=== PATIENT | male | born 1970 | race Caucasian/White ===

== ENCOUNTER → 2017-07-21 | Outpatient (CLI) | payer OTHER ==
[~2017-07-21] MED LIST: IOPAMIDOL (ISOVUE-370) 150 ML BTL IV ONE; METOPROLOL TARTRATE 5 MG/5 ML INJ ONE
== END ==
LOC: FIMAGING 07:43
PROVIDERS: ATTEND Internal Medicine Cardiovascular Disease
DX: I49.3 Ventricular premature depolarization (principal)
CPT/HCPCS: Q9967

== ENCOUNTER 2017-10-13 07:03 | Observation (INO) | payer OTHER ==
[2017-10-13] MEDS ORDERED: NS 1,000 ML IV ONE (07:04)
--- NOTE | 2017-10-13 07:34 | CPEKG ---
Heart Rate: 81 RR Interval: 741 P-R Interval: 148 QRSD Interval: 104 QT Interval: 436 QTC Interval: 506 P [place]: -16 QRS [place]: 19 T Wave [place]: -19 EKG Severity - ABNORMAL ECG - EKG Impression: SINUS RHYTHM EKG Impression: MULTIPLE VENTRICULAR PREMATURE COMPLEXES Electronically Signed By: Boo Payne 13-Oct-2017 08:43:46
--- NOTE | 2017-10-13 07:44 | PDANEPAE ---
ANE History of Present Illness 47 year old male for PVC ablation. ANE Past Medical History - Cardiovascular History Hx Hypertension: No Hx Arrhythmias: Yes Hx Chest Pain: No Hx Coronary Artery / Peripheral Vascular Disease: No Hx CHF / Valvular Disease: No Hx Palpitations: Yes Cardiovascular History Comment: Frequent PVCs; here for PVC ablation. - Pulmonary History Hx COPD: No Hx Asthma/Reactive Airway Disease: Yes Hx Recent Upper Respiratory Infection: No Hx Oxygen in Use at Home: No Hx Sleep Apnea: No - Neurologic History Hx Cerebrovascular Accident: No Hx Seizures: No Hx Dementia: No - Endocrine History Hx Diabetes: No Endocrine History Comment: History of thyroid nodule surgically removed - benign. Was previously on levothyroxine, but discontinued in 2014 - Renal History Hx Renal Disorders: No - Liver History Hx Hepatic Disorders: No - Neurological & Psychiatric Hx Hx Neurological and Psychiatric Disorders: No - Cancer History Hx Cancer: No - Congenital Disorder History Hx Congenital Disorders: No - GI History GERD: mild - Chronic Pain History Chronic Pain: No - Surgical History Prior Surgeries: Cervical spine artificial disc but has preserved range of motion. ANE Review of Systems Review of systems is: negative Review of Systems: - Exercise capacity Exercise capacity: >=4 METS ANE Patient History - Allergies Allergies/Adverse Reactions: Penicillins Allergy (Unknown, Verified 10/07/17 11:31) Dyspnea/Hives - Home Medications Home medications: home medication list seen and reviewed Home Medications: Aspirin [Aspirin 81mg (*)] 81 mg PO DAILY 10/07/17 [Last Taken Unknown] Multivitamins [Multivitamin (*)] 1 each PO DAILY 10/07/17 [Last Taken Unknown] Verapamil ER [[place] SR/ER 180MG (*)] 180 mg PO DAILY 10/07/17 [Last Taken Unknown] - NPO status NPO Status: no food or drink >8 hours - Anes Hx Anes Hx: no prior problems - Smoking Hx Smoking Status: Former smoker Marijuana use: No - Alcohol Use Alcohol Use: Occasionally - Family Anes Hx Family Anes Hx: neg - N/A ANE Labs/Vital Signs - Labs Result Diagrams: 10/13/17 07:35 10/13/17 07:35 - Vital Signs Vital Signs: reviewed preoperatively; see RN documention for details ( documented vitals reviewed in patient's pre-op room ([facility] room 4)) Height: 187.96 cm Weight: 102.058 kg ANE Physical Exam - Airway Mallampati Score: Class 1 Mouth exam: normal dental/mouth exam, simon - Pulmonary Pulmonary: no respiratory distress - Cardiovascular Cardiovascular: regular rate and rhythym - ASA Status ASA Status: II ANE Anesthesia Plan Anesthesia Plan: general endotracheal anesthesia Total IV Anesthesia: No
[2017-10-13 07:50] LABS: PLATELET COUNT 195 10^3/uL (150-400)
[2017-10-13 07:58] LABS: INR 1.11 (0.83-1.16); PROTIME(PATIENT) 14.5 SEC (12.0-15.0)
[2017-10-13] MEDS ORDERED: HEPARIN 10,000 UNIT/10 ML MDV (1,000 UNIT/ML) ONE ×2 (08:03→08:17)
[2017-10-13] MEDS ORDERED: ISOPROTERENOL HCL/D5W 0.2 MG/50 ML BAG IV ONE (08:03)
[2017-10-13] MEDS ORDERED: LIDOCAINE 1% 300 MG/30 ML SDV ONE (08:03)
[2017-10-13] MEDS ORDERED: MIDAZOLAM 2 MG/2 ML VIAL IVP ONE (08:10)
[2017-10-13] MEDS ORDERED: BUPIVACAINE 0.75% 10 ML SDV EP ONE (08:15)
[2017-10-13] MEDS ORDERED: HEPARIN/DEXTROSE 25,000 UNIT/500 ML BAG ONE (08:17)
[2017-10-13] MEDS ORDERED: PROPOFOL/EMULSION 500 MG/50 ML BOTTLE IV ONE ×4 (08:23→10:24)
[2017-10-13] MEDS ORDERED: fentaNYL 100 MCG/2 ML INJ ONE (08:23)
[2017-10-13] MEDS ORDERED: IOPAMIDOL (ISOVUE-300) 100 ML BTL ONE (08:24)
[2017-10-13] MEDS ORDERED: ROCURONIUM 100 MG/10 ML VIAL ONE (08:30)
--- NOTE | 2017-10-13 08:41 | PDGENHP ---
History & Physical Chief Complaint: symptomatic PVC with cardiomyopathy Relevant Physical Exam: [id number] reg irreg. cta. ao3 Cardiorespiratory Assessment: plan pvc ablation
[2017-10-13] MEDS ORDERED: PHENYLEPHRINE HCL 100 MCG/ML SYR ONE (09:07)
[2017-10-13] MEDS ORDERED: ROCURONIUM 50 MG/5 ML VIAL ONE (09:47)
[2017-10-13] MEDS ORDERED: PHENYLEPHRINE HCL 100 MCG/ML SYR IVP PRN (10:46)
[2017-10-13] MEDS ORDERED: ACETAMINOPHEN 500 MG TAB PO PRN (10:46)
[2017-10-13] MEDS ORDERED: ONDANSETRON 4 MG/2 ML VIAL IVP PRN (10:46)
[2017-10-13] MEDS ORDERED: fentaNYL 100 MCG/2 ML INJ IVP PRN (10:46)
[2017-10-13] MEDS ORDERED: NALOXONE HCL 0.4 MG/ML INJ IVP PRN (10:46)
[2017-10-13] MEDS ORDERED: LR 500 ML IV PRN (10:46)
[2017-10-13] MEDS ORDERED: oxyCODONE IR 5 MG TAB PO PRN (10:46)
[2017-10-13] MEDS ORDERED: SUGAMMADEX SODIUM 200 MG/2 ML VIAL IVP ONE (10:50)
[2017-10-13] MEDS ORDERED: ONDANSETRON 4 MG/2 ML VIAL ONE (10:50)
[2017-10-13] MEDS ORDERED: PROTAMINE SULFATE 50 MG/5 ML VIAL IVP ONE (11:20)
[2017-10-13] MEDS ORDERED: ATROPINE SULFATE 1 MG/10 ML SYR ONE (11:55)
--- NOTE | 2017-10-13 14:05 | CPEKG ---
Heart Rate: 69 RR Interval: 870 P-R Interval: 160 QRSD Interval: 106 QT Interval: 440 QTC Interval: 472 P [place]: 68 QRS [place]: 30 T Wave [place]: 77 EKG Severity - NORMAL ECG - EKG Impression: SINUS RHYTHM Electronically Signed By: Boo Payne 13-Oct-2017 16:27:36
--- NOTE | 2017-10-13 15:09 | EPPROC ---
Electrophysiology Procedure Note: ELECTROPHYSIOLOGIC STUDY AND CATHETER MEDIATED ABLATION OF PREMATURE VENTRICULAR BEATS ORIGINATING IN THE LEFT VENTRICLE Procedures performed: 35974-11 EP evaluation with RA/RV/LA pace/record, with arrhythmia induction 29527-34 EP evaluation with RA/RV pace record, insert/reposition catheter, with arrhythmia induction 84994 Intracardiac catheter ablation, VT arrhythmogenic focus Fluoroscopy INDICATION: Recurrent PVC, not controlled with BB or CCB Cardiomyopathy The patient arrived in the Electrophysiology Laboratory in the fasting state. The right clavicular region, right groin, and left groin area were prepped and draped in the usual sterile manner. Appropriate non-invasive blood pressure, pulse oximetry and end-tidal CO2 monitoring was established. Anesthesiologist Dr. Victor Manuel Santos administered propofol anesthesia. All catheters were placed percutaneously using the modified Seldinger technique , and advanced into position under fluoroscopic guidance. One #7 [place] deflectable octapolar electrode catheter was advanced to the His-bundle position via the left femoral vein . One #7 [place] deflectable catheter with 10 pairs of electrodes was placed via the right femoral vein into the distal coronary sinus AIV junction. One #8 [place] sheath was placed into the right femoral artery for retrograde aortic access. Heparin was administered to keep ACT > 300 seconds. Programmed stimulation was performed from the right atrium, right ventricle and CS (left atrium). Parahisian pacing demonstrated all retrograde conduction over the AV node. The patient arrived to the electrophysiology laboratory in normal sinus rhythm with frequent PVC. PVC morphology LBBB inferior axis with positive QRS concordance in V1-V6. PVC frequency increased with phenylephrine boluses. A 3.5 mm STSF [employer] ablation catheter with a magnetic sensor for the Carto 3D electroanatomic mapping system was used for mapping. Mapping (during PVC) of the left ventricular outflow tract and anterior interventricular vein identified earliest ventricular activation at the anterolateral mitral annulus Ventricular activation began 30 ms before the onset of the QRS complex with sharp negative deflection in the unipolar electrode. This was as early as the far field activation in the coronary sinus suggesting a mid-myocardial origin. RF #1 application at this site immediately caused termination of PVCs and they were not seen for the remainder of the case. RF#2 and 3 were applied anterior and posterior to this area. Observation for 30 minutes after the application of radiofrequency current was performed at baseline and with phenylephrine bouses. Patient was recovered from anesthesia and further observation continued for 30 more minutes with patient fully awake. No spontaneous ventricular extra systoles of the primary pattern seen prior to ablation were induced spontaneously or with ventricular burst pacing. Rare ventricular extra systoles with different patterns were observed but these were due to catheter manipulation or mechanical contact (these were of RVOT origin with QRS transition in V4, total of 4 RVOT PVCs seen during observation period). The catheters were removed. Protamine was administered. Sheaths were removed in the EP lab after applying subcutaneous purse string suture. The patient was transferred to the cardiovascular holding area in stable condition. Arterial sheath will be removed in CVC. There were no apparent complications. CONCLUSIONS: 1. Premature ventricular beats originating from the anterolateral mitral annulus. 2. Successful catheter mediated ablation of the premature ventricular beats. 3. No apparent complications. Patient Problems: Problems Problem Status Onset Ventricular arrhythmia Acute
--- NOTE | 2017-10-13 16:39 | POSTANESTH ---
Post Anesthetic Evaluation Cardiovascular Status: Normal, Stable, Similar to Pre-Op Cond Respiratory Status: Normal, Stable, Similar to Pre-op Cond. Level of Consciousness/Mental Status: Can Participate in Eval, Alert and Oriented Pain Control: Adequate, Prn Tx Ordered Nausea/Vomiting Control: Adequate, Prn Tx Ordered Complications Possibly Related to Anesthesia: None Noted
[2017-10-14 04:18] LABS: PLATELET COUNT 173 10^3/uL (150-400)
[2017-10-14] MEDS ORDERED: MULTIVITAMINS 1 EACH TAB PO SCH (09:00)
[2017-10-14] MEDS ORDERED: ASPIRIN 81 MG CHEWABLE TAB PO SCH (09:00)
--- NOTE | 2017-10-14 09:16 | CPEKG ---
Heart Rate: 70 RR Interval: 857 P-R Interval: 132 QRSD Interval: 114 QT Interval: 412 QTC Interval: 445 P [place]: 15 QRS [place]: 26 T Wave [place]: 65 EKG Severity - ABNORMAL ECG - EKG Impression: SINUS RHYTHM EKG Impression: NONSPECIFIC INTRAVENTRICULAR CONDUCTION DELAY Electronically Signed By: Boo Payne 14-Oct-2017 11:02:16
--- NOTE | 2017-10-14 10:53 | ECHO ---
[email or web address] [address] [address] Main: [phone] Fax: Transthoracic Echocardiogram Name: GRETEL MIRZA MR#: [id number] Study Date: 10/14/2017 Study Time: 08:52 AM Date of : 1970 Age: 47 year(s) Height: 188 cm (74 in.) Weight: 102.06 kg (225 lb.) BSA: 2.28 m2 Gender: Male Examination: Echo Indication: Post TAVR Image Quality: Contrast: Requested by: Boo Payne BP: 117 mmHg/66 mmHg Heart Rate: Rhythm: Indication: Post TAVR Procedure Staff Fur Dressing Supervisor: Mike Knowles RDCS Reading Physician: Boo Payne MD Requesting Provider: Conclusions: Mildly to moderately dilated left ventricle. Diastolic dysfunction is present. . The estimated EF is 45%. The left atrium is mildly dilated. Prior echo reported LVEF of 40% Measurements: Chambers Valvular Assessment AV/MV Valvular Assessment TV/PV Normal Normal Normal Name Value Range Name Value Range Name Value Range Ao Karen (MM): 3.4 cm (2.2 cm-3.7 AV Vmax: 1.43 m/s (1 m/s-1.7 PV Vmax: 1.05 m/s (0.6 m/s-0.9 cm) m/s) m/s) IVSd (2D): 1.0 cm (0.6 cm-1.1 AV maxP mmHg ( - ) PV PGmax: 4 mmHg ( - ) cm) LVOT Vmax: 0.64 m/s (0.7 m/s-1.1 LVDd (2D): 6.2 cm (4.2 cm-5.9 m/s) cm) MV E Vmax: 0.51 m/s ( - ) LVDs (2D): 4.5 cm (2.1 cm-4 MV A Vmax: 0.64 m/s ( - ) cm) MV E/A: 0.80 ( - ) LVPWd (2D): 1.4 cm (0.6 cm-1 cm) LVEF (BP): 44 % (>=55 %) Continued Measurements: Chambers Valvular Assessment AV/MV Name Value Name Value LADs Lon.9 cm MV E' Septal: 0.06 m/s LA Area: 25.2 cm2 MV E/E' Septal: 8.10 LA Volume: 80 ml MV E/E' Lateral: 10.40 LA Volume Index: 35.1 ml/m2 Patient: GRETEL MIRZA Study Date: 10/14/2017 Page 1 of 2 08:52 AM Findings: Left Ventricle: Mildly to moderately dilated left ventricle. No LV hypertrophy. No regional wall motion abnormality. Diastolic dysfunction is present. . The estimated EF is 45%. Right Ventricle: Normal size right ventricle. Normal RV function. Left Atrium: The left atrium is mildly dilated. Right Atrium: The right atrium is borderline dilated. Aortic Valve: The aortic valve is normal in appearance and function. The aortic valve is tri-leaflet. Tricuspid Valve: The tricuspid valve is normal in appearance and function. Pulmonic Valve: The pulmonic valve is normal in appearance and function. Aorta: The aorta is normal. Pericardium: No pericardial effusion. (No Signature Object) Patient: GRETEL MIRZA Study Date: 10/14/2017 Page 2 of 2 08:52 AM [id number]
[2017-10-14 11:45] VITALS: BP 120/61
--- NOTE | 2017-10-15 08:18 | GDS ---
[f rep st] DISCHARGE SUMMARY ADMIT DIAGNOSES: 1. Uncontrolled premature ventricular contractions. 2. Planned electrophysiology study with premature ventricular contraction ablation. DISCHARGE DIAGNOSIS: Status post successful premature ventricular contraction ablation. COURSE OF HOSPITALIZATION: This gentleman was evaluated by Dr. Payne in the clinic in July 2017, having him monitored for PVC burden finding 62,000 in a 48 -hour period. He was placed on verapamil, which he did not tolerate well and failed treatment. It was noted that he declined in his ejection fraction to 40% , and it was recommended that he stop the verapamil and proceed with PVC ablation therapy. He did have a CTA done prior to the procedure, finding normal coronary arteries. He was taken to the EP lab, where Dr. Payne was able to successfully isolate the focus of the PVCs and performed successful PVC ablation. He was then taken to PCU for overnight observation, where he has done well. He has no groin-site bleeding or tenderness. He has been up ambulating, and at this time, he is stable for discharge. PROCEDURE: On 10/13/2017, PVC ablation with no complications. Conclusion of test: 1. Premature ventricular beats originating from the anterior lateral mitral anulus. 2. Successful catheter-mediated ablation of the premature ventricular beats. 3. No apparent complications. ALLERGIES: He is allergic to penicillins. DISCHARGE MEDICATIONS: 1. Aspirin 81 mg daily. 2. Multivitamin 1 daily. EXAM: VITAL SIGNS: On day of discharge, blood pressure 120/61, heart rate 73 and regular, oxygen saturation 94% on room air, temperature 37.1 Celsius. EKG , showed a normal sinus rhythm with a rate of 70 with idioventricular conduction delay noted. Echocardiogram 10/14/2017: Ejection fraction 45%. No pericardial effusion noted. DISCHARGE PLAN: 1. Groin-site precautions were reviewed with him and written information given. Reminded him no heavy lifting, pushing, pulling greater than 10 pounds. Should groin site bleed, hold firm continuous pressure. If bleeding does not stop, go to the nearest emergency room. He will follow up with Dr. Payne in 3 weeks. He does have his appointment made at this time. 2. Should he have any problems, he is to call [facility] and ask for Coral or Brooke, the EP nurses. At this time, he currently is stable for discharge. /[id number]/MODL MTDD
== END 2017-10-14 12:08 | disposition home or self-care (01) ==
LOC: FCATH 07:03 → F2W 11:38
PROVIDERS: ADMIT Internal Medicine Cardiovascular Disease; ATTEND Internal Medicine Cardiovascular Disease
PROC: 02573ZZ Destruction of Left Atrium, Percutaneous Approach (ICD-10-PCS; principal; 2017-10-13)
PROC: 5A1213Z Performance of Cardiac Pacing, Intermittent (ICD-10-PCS; principal; 2017-10-13)
PROC: 025K3ZZ Destruction of Right Ventricle, Percutaneous Approach (ICD-10-PCS; principal; 2017-10-13)
PROC: 02563ZZ Destruction of Right Atrium, Percutaneous Approach (ICD-10-PCS; principal; 2017-10-13)
PROC: 4A023FZ Measurement of Cardiac Rhythm, Percutaneous Approach (ICD-10-PCS; principal; 2017-10-13)
PROC: 02H73MZ Insertion of Cardiac Lead into Left Atrium, Percutaneous Approach (ICD-10-PCS; principal; 2017-10-13)
DX: I49.3 Ventricular premature depolarization (principal)
CPT/HCPCS: 93005; 93306; 93621; 93623; 93654; G0378; C1731; C1732; J0461; J1644; J2370; J2405; J2704; J2720; J3010; Q9967

== ENCOUNTER 2017-10-15 17:20 | Emergency (ER) | payer OTHER ==
--- NOTE | 2017-10-15 17:46 | EDPHY ---
H & P Time Seen by Provider: 10/15/17 17:26 HPI/ROS: Chief complaint. Groin pain after ablation HPI. 47-year-old male presents emergency department with increased pain swelling and bruising to the right groin. He had a ablation for symptomatic PVC with cardiomyopathy 2 days ago. He was discharged yesterday. He had an echo while he was here showing igld-uc-piwizdbw dilation of the left ventricle. Patient has no chest discomfort or trouble breathing. No fever. Increased pain and bruising and a new swelling today superior and lateral to the area where the femoral puncture was performed. He is also somewhat nauseated ROS Constitutional. no fever/chills, no weakness Eyes. no problems with vision ENT. no sore throat, no nasal drainage Cardiovascular. no chest pain Respiratory. no shortness of breath, no cough Abdominal. no abdominal pain, no nausea/vomiting, no diarrhea . no problems urinating MS. Right groin pain and swelling and bruising Skin. no rash Lymph. no swollen glands Neuro. no headache, no dizziness, no difficulty walking or with speech Past Medical/Surgical History: Cardiomyopathy with symptomatic PVCs, orthopedic surgery, partial thyroidectomy Social History: , nonsmoker, no alcohol Smoking Status: Former smoker Physical Exam: General Appearance: Alert pleasant well-developed male mild distress vital signs are stable Eyes: Pupils equal and round no pallor or injection. ENT, Mouth: Mucous membranes are moist. Respiratory: There are no retractions, lungs are clear to auscultation. Cardiovascular: Regular rate and rhythm. Gastrointestinal: Abdomen is soft and nontender, no masses, bowel sounds normal. Neurological: Awake and alert, sensory and motor exams grossly normal. Skin: Right groin ecchymosis. There is also a new area of ecchymosis and moderate swelling superior and lateral to the puncture site. No signs of infection. Distal pulses are symmetrical Musculoskeletal: Neck is supple nontender. Extremities symmetrical, full range of motion. Psychiatric: Patient is oriented X 3, there is no agitation. Constitutional: Initial Vital Signs Temperature (C) 36.7 C 10/15/17 17:22 Heart Rate 78 10/15/17 17:22 Respiratory Rate 16 10/15/17 17:22 Blood Pressure 122/77 H 10/15/17 17:22 O2 Sat (%) 96 10/15/17 17:22 O2 Delivery Mode Room Air Allergies/Adverse Reactions: Penicillins Allergy (Unknown, Verified 10/07/17 11:31) Dyspnea/Hives Home Medications: Medication Instructions Recorded Aspirin [Aspirin 81mg (*)] 81 mg PO DAILY 10/07/17 Multivitamins [Multivitamin (*)] 1 each PO DAILY 10/07/17 Medical Decision Making - Diagnostics Imaging Results: Imaging Impressions Pseudoaneurysm Repair US 10/15/17 17:47 Impression: 1. Negative right groin sonogram. Results called to Dr. Santi Carreno at 6:45 PM. Ultrasound right groin reviewed by me and discussed with Dr. Cheatham shows no evidence for pseudo aneurysm or AV fistula Procedures: IV normal saline. Zofran IV ED Course/Re-evaluation: I consulted and discussed the case with Dr. Ardon 7:00 p.m. patient, his , and I discussed imaging study results and lab results. We discussed treatment plan including criteria for return and importance of follow-up and further evaluation. They expressed understanding and agreement for cardiology who is fine with sending the patient home and continuing groin care precautions Differential Diagnosis: Post ablation and femoral puncture groin swelling and ecchymosis and pain. I considered pseudoaneurysm and AV fistula. - Data Points Laboratory Results: Laboratory Results 10/15/17 18:00 10/15/17 18:00 10/15/17 10/15/17 10/15/17 18:00 18:00 18:00 WBC 8.05 10^3/uL 10^3/uL (3.80-9.50) RBC 4.91 10^6/uL 10^6/uL (4.40-6.38) Hgb 14.9 g/dL g/dL (13.7-17.5) Hct 43.7 % % (40.0-51.0) MCV 89.0 fL fL (81.5-99.8) MCH 30.3 pg pg (27.9-34.1) MCHC 34.1 g/dL g/dL (32.4-36.7) RDW 12.3 % % (11.5-15.2) Plt Count 189 10^3/uL 10^3/uL (150-400) MPV 10.4 fL fL (8.7-11.7) Neut % (Auto) 51.7 % % (39.3-74.2) Lymph % (Auto) 34.9 % % (15.0-45.0) [place] % (Auto) 7.0 % % (4.5-13.0) Eos % (Auto) 5.7 % % (0.6-7.6) Baso % (Auto) 0.2 % L % (0.3-1.7) Nucleat RBC Rel Count 0.0 % % (0.0-0.2) Absolute Neuts (auto) 4.16 10^3/uL 10^3/uL (1.70-6.50) Absolute Lymphs (auto) 2.81 10^3/uL 10^3/uL (1.00-3.00) Absolute Monos (auto) 0.56 10^3/uL 10^3/uL (0.30-0.80) Absolute Eos (auto) 0.46 10^3/uL H 10^3/uL (0.03-0.40) Absolute Basos (auto) 0.02 10^3/uL 10^3/uL (0.02-0.10) Absolute Nucleated RBC 0.00 10^3/uL 10^3/uL (0-0.01) Immature Gran % 0.5 % % (0.0-1.1) Immature Gran # 0.04 10^3/uL 10^3/uL (0.00-0.10) PT 13.2 SEC SEC (12.0-15.0) INR 0.98 (0.83-1.16) APTT 26.4 SEC SEC (23.0-38.0) Sodium 140 mEq/L mEq/L (135-145) Potassium 3.7 mEq/L mEq/L (3.3-5.0) Chloride 107 mEq/L mEq/L (97-110) Carbon Dioxide 22 mEq/l mEq/l (22-31) Anion Gap 11 mEq/L mEq/L (8-16) BUN 15 mg/dL mg/dL (7-23) Creatinine 1.1 mg/dL mg/dL (0.7-1.3) Estimated GFR > 60 Glucose 136 mg/dL H mg/dL (70-100) Calcium 9.0 mg/dL mg/dL (8.5-10.4) Medications Given: Discontinued Medications Sodium Chloride (Ns) 1,000 mls @ 0 mls/hr IV EDNOW ONE; Wide Open PRN Reason: Protocol Stop: 10/15/17 17:48 Last Admin: 10/15/17 17:57 Dose: 1,000 mls Ondansetron HCl (Zofran) 4 mg IVP EDNOW ONE Stop: 10/15/17 17:48 Last Admin: 10/15/17 17:57 Dose: 4 mg Departure - Departure Disposition: Home, Routine, Self-Care Clinical Impression: Groin pain Qualifiers: Laterality: right Qualified Code(s): R10.31 - Right lower quadrant pain Condition: Good Instructions: Groin Pain (ED) Additional Instructions: Continue decreased activity a and elevation of right lower extremity. Continue ice to groin next [address] Payne's office will call you tomorrow to check on you. Return for worsening symptoms Referrals: NONE *PRIMARY CARE P,. [Primary Care Provider] - As per Instructions Boo Payne MD [Medical Doctor] - As per Instructions
[2017-10-15] MEDS ORDERED: NS 1,000 ML IV ONE (17:47)
[2017-10-15] MEDS ORDERED: ONDANSETRON 4 MG/2 ML VIAL IVP ONE (17:47)
[2017-10-15 18:09] LABS: PLATELET COUNT 189 10^3/uL (150-400)
[2017-10-15 18:18] LABS: INR 0.98 (0.83-1.16); PROTIME(PATIENT) 13.2 SEC (12.0-15.0)
[2017-10-15 19:32] VITALS: BP 114/78
== END 2017-10-15 19:31 | disposition home or self-care (01) ==
DX: G89.18 Other acute postprocedural pain (principal); R10.31 Right lower quadrant pain; E86.9 Volume depletion, unspecified; Z79.82 Long term (current) use of aspirin; Z87.891 Personal history of nicotine dependence
CPT/HCPCS: 96374; J2405

== ENCOUNTER 2018-10-04 06:47 | Day surgery (SDC) | payer OTHER | END 2018-10-04 13:30 | disposition home or self-care (01) | LOC: FCATH 06:47 ==